=== PATIENT | male | born 1995 | race Caucasian/White ===

== ENCOUNTER 2017-01-08 15:32 | Emergency (ER) | payer MEDICAID ==
[2017-01-08 15:51] VITALS: BP 153/71; PULSE 68; RESP 16; TEMP 98.1; O2SAT 95
--- NOTE | 2017-01-08 16:32 | EDPHY ---
H & P Time Seen by Provider: 01/08/17 15:55 HPI/ROS: CHIEF COMPLAINT: Finger laceration HISTORY OF PRESENT ILLNESS: Patient is a 21-year-old man who comes to the emergency department with his mom complaining of a laceration to his right thumb. He is using a curved pained script for and cut the tip of his finger. It does have very minimal involvement of the fingernail in nail bed. No sign of fracture foreign body or deformity. No crush injury. Normal sensation and capillary refill. REVIEW OF SYSTEMS: Constitutional: denies: chills, fever, recent illness, recent injury EENTM: denies: blurred vision, double vision, nose congestion Respiratory: denies: cough, shortness of breath Cardiac: denies: chest pain, irregular heart rate, lightheadedness, palpitations Gastrointestinal/Abdominal: denies: abdominal pain, diarrhea, nausea, vomiting, blood streaked stools Genitourinary: denies: dysuria, frequency, hematuria, pain Musculoskeletal: denies: joint pain, muscle pain Skin: See HPI Neurological: denies: headache, numbness, paresthesia, tingling, dizziness, weakness Hematologic/Lymphatic: denies: blood clots, easy bleeding, easy bruising Immunologic/allergic: denies: HIV/AIDS, transplant EXAM: GENERAL: Well-appearing, well-nourished and in no acute distress. HEAD: Atraumatic, normocephalic. EYES: Pupils equal round and reactive to light, extraocular movements intact, sclera anicteric, conjunctiva are normal. ENT: TMs normal, nares patent, oropharynx clear without exudates. Moist mucous membranes. NECK: Normal range of motion, supple without lymphadenopathy or JVD. LUNGS: Breath sounds clear to auscultation bilaterally and equal. No wheezes rales or rhonchi. HEART: Regular rate and rhythm without murmurs, rubs or gallops. ABDOMEN: Soft, nontender, normoactive bowel sounds. No guarding, no rebound. No masses appreciated. BACK: No CVA tenderness, no spinal tenderness, step-offs or deformities EXTREMITIES: Normal range of motion, no pitting or edema. No clubbing or cyanosis. NEUROLOGICAL: Cranial nerves II through XII grossly intact. Normal speech, normal gait. 5/5 strength, normal movement in all extremities, normal sensation PSYCH: Normal mood, normal affect. SKIN: Patient has a 1.5 cm laceration to the tip of his thumb. It is not deep enough to involve bone. Involves the tuft of finger and very distal aspect of the fingernail. Some minimal nail bed involvement. Normal pulses, capillary refill sensation. Source: Patient Exam Limitations: No limitations - Personal History Current Tetanus/Diphtheria Vaccine: Yes - Medical/Surgical History Hx Asthma: No Hx Chronic Respiratory Disease: No Hx Diabetes: No Hx Cardiac Disease: No Hx Renal Disease: No Hx Cirrhosis: No Hx Alcoholism: No Other PMH: denies - Family History Significant Family History: No pertinent family hx - Social History Smoking Status: Never smoked Alcohol Use: None Drug Use: None Constitutional: Initial Vital Signs Temperature (C) 36.7 C 01/08/17 15:40 Heart Rate 68 01/08/17 15:40 Respiratory Rate 16 01/08/17 15:40 Blood Pressure 153/71 H 01/08/17 15:40 O2 Sat (%) 95 01/08/17 15:40 O2 Delivery Mode Room Air Allergies/Adverse Reactions: No Known Allergies Allergy (Verified 01/08/17 15:51) Home Medications: Medication Instructions Recorded Miscellaneous Medical Supply [NO 11/09/12 HOME MEDS] Medical Decision Making Procedures: Procedure: Laceration repair. Verbal consent was obtained from the patient. The 1.5 cm thumb laceration was anesthetized with 0.5% bupivacaine digital block. The wound was irrigated copiously according to protocol, draped and explored to its base. It was approximately 1/2 cm deep. There were no deep structures involved. No tendon, nerve, or vascular injury was identified when explored through full range of motion. No foreign body was identified. The wound was repaired with 5.09 on, 2 sutures, interrupted. The wound repair was simple without wound margin revisement or multiple flap alignment. The procedure was performed by myself. A dressing was then placed with sterile gauze and bacitracin. ED Course/Re-evaluation: I did not repair the nail bed because it is held together well by the to skin sutures. The nail and nail bed repair very distal and minimal. We discussed follow-up as well as healing and suture care. Patient and mom are happy with this and decline further workup or testing. Differential Diagnosis: Partial list of the Differential diagnosis considered include but were not limited to; feel his finger laceration, nail bed injury, foreign body and although unlikely based on the history and physical exam, I also considered fracture, infection, assault. I discussed these differential diagnoses and the plan with the patient as well as the usual and expected course. The patient understands that the diagnosis is provisional and that in medicine we are not always correct and that further workup is often warranted. Usual and customary warnings were given. All of the patient's questions were answered. The patient was instructed to return to the emergency department should the symptoms at all worsen or return, otherwise to followup with the physician as we discussed. Departure - Departure Disposition: Home, Routine, Self-Care Clinical Impression: Laceration Condition: Fair Instructions: Finger Laceration (ED) Additional Instructions: Have your stitches removed in 10 days Referrals: Aurea Grewal MD [Medical Doctor] - As per Instructions
== END 2017-01-08 16:45 | disposition home or self-care (01) ==
LOC: CED 15:32
PROC: 0HQFXZZ Repair Right Hand Skin, External Approach (ICD-10-PCS; principal; 2017-01-08)
DX: S61.011A Laceration without foreign body of right thumb without damage to nail, initial encounter (principal); W45.8XXA Other foreign body or object entering through skin, initial encounter